=== PATIENT | female | born 1950 | race Caucasian/White ===

== ENCOUNTER 2017-02-09 17:55 | Emergency (ER) | payer BC ==
[~2017-02-09] VITALS: Wt 94.3 kg
[2017-02-09] MEDS ORDERED: SYNTHROID RP0.1 MG PO (18:03)
[2017-02-09] MEDS ORDERED: FLUOXETINE HYDR20 M1 PO (18:04)
[2017-02-09] MEDS ORDERED: TRAZODONE50 MG PO (18:04)
[2017-02-09 18:42] LABS: BILIRUBIN NEGATIVE (NEGATIVE); BLOOD TRACE-LYSED (NEGATIVE); CLARITY SL CLOUDY (CLEAR); COLOR YELLOW (YELLOW); GLUCOSE NEGATIVE (NEGATIVE); KETONE NEGATIVE (NEGATIVE); LEUKO ESTERASE 3+ (NEGATIVE); NITRITE NEGATIVE (NEGATIVE); PROTEIN NEGATIVE (NEGATIVE); SPECIFIC GRAVITY >= 1.030 (1.005-1.030); UROBILINOGEN 0.2 E.U./dl (0.2-1.0)
[2017-02-09 18:50] LABS: BASO % 0.4 % (0.0-1.0); EOS % 0.3 % (1.0-4.0); HEMATOCRIT 43.6 % (37.0-47.0); HEMOGLOBIN 14.2 g/dl (12.0-16.0); IG # 0.1 10*3/uL (0.0-0.1); LYMPH # 2.7 10*3/uL (1.3-4.4); LYMPH % 25.5 % (27.0-41.0); MEAN CELL VOLUME 91.6 fl (81.0-99.0); MEAN CORPUSCULAR HGB 29.8 pg (27.0-31.0); MEAN CORPUSCULAR HGB CONC 32.6 g/dl (33.0-37.0); MEAN PLATELET VOLUME 10.1 fl (9.6-12.3); MONO # 0.6 10*3/uL (0.1-1.0); MONO % 5.5 % (3.0-9.0); NEUT # 7.3 10*3/uL (2.3-7.9); NEUT % 67.8 % (47.0-73.0); PLATELET COUNT AUTOMATED 205 10*3/uL (130-400); RED BLOOD COUNT 4.76 10*6/uL (4.10-5.10); RED CELL DISTRI WIDTH 13.8 % (0-14.5); WHITE BLOOD COUNT 10.7 10*3/uL (4.8-10.8)
[2017-02-09 18:58] LABS: URINE REFLEX COMMENT YES (NO)
[2017-02-09 18:59] LABS: BACTERIA 1+
[2017-02-09 19:01] LABS: WBC 51-100 wbc/hpf (0-5)
[2017-02-09 19:05] LABS: ALBUMIN 3.9 gm/dl (3.1-4.5); BILIRUBIN, TOTAL 0.3 mg/dl (0.2-1.0); POTASSIUM 3.8 mmol/L (3.5-5.1); TOTAL PROTEIN 7.2 gm/dL (6.4-8.2)
[2017-02-09 20:47] LABS: LA>2 REFLEX 2 HR DRAW NOW
[2017-02-09] MEDS ORDERED: Motrin,Rufen800 MG PO (21:11)
[2017-02-09] MEDS ORDERED: HYDROCODONE BIT1 T11 PO (21:11)
[2017-02-09] MEDS ORDERED: LEVAQUIN750 M1 PO (21:11)
[2017-02-09] MEDS ORDERED: Zofran4 MG PO (21:11)
== END 2017-02-09 21:22 | disposition home or self-care (01) ==
LOC: ED 17:55
PROVIDERS: Physician Assistant
DX: N20.0 Calculus of kidney (principal); Z87.442 Personal history of urinary calculi; Z88.2 Allergy status to sulfonamides